=== PATIENT | female | born 1985 | race Caucasian/White ===

== ENCOUNTER 2022-04-26 10:30 | Emergency (ER) | payer BC ==
[2022-04-26] MEDS ORDERED: Ondansetron 4 MG/2 ML SDV IVPUSH ONE (11:12)
[2022-04-26] MEDS ORDERED: Morphine 2 MG/ML SYRINGE IVPUSH ONE (11:13)
[2022-04-26] MEDS ORDERED: Sodium Chloride 0.9% 1,000 ML IV SCH (11:15)
[2022-04-26 11:46] LABS: ESTIMATED GFR 99 mL/min (>60)
== END 2022-04-26 12:13 | disposition home or self-care (01) ==
LOC: JP.ED 10:30
DX: R10.11 Right upper quadrant pain (principal)
CPT/HCPCS: 36415; 80053; 81001; 85025; 99283; 99284